=== PATIENT | male | born 1950 | race Caucasian/White ===

== ENCOUNTER 2016-12-12 11:57 | Emergency (ER) | payer OTHER ==
[~2016-12-12 11:57] MED LIST: ALPRAZOLAM PO; ALPRAZOLAM0.5 MG PO; ASPIRIN81 M2 PO; CALCIUM + D 6001 TA1 PO; CERTAGEN PO; DULCOLAX5 M1 PO; FUROSEMIDE40 MG PO; MULTI VITAMIN1 EACH PO; NEURONTIN800 MG PO; OXYCODONE HCL20 M1 PO; OXYCONTIN PO; RESTASIS32 EA OU; REYATAZ150 MG PO; STADOL; TEMAZEPAM PO; TRIUMEQ TABLET1 EACH PO; VIT B-12 PO; VITAMIN C1000 M2 PO; [UNRECOGNIZED DRUG - OTHER]
== END 2016-12-12 13:15 | disposition home or self-care (01) ==
LOC: CED 11:57 → CFTX 11:57
DX: S81.811A Laceration without foreign body, right lower leg, initial encounter (principal); Z88.8 Allergy status to other drugs, medicaments and biological substances; Z79.899 Other long term (current) drug therapy; Z23 Encounter for immunization; W22.8XXA Striking against or struck by other objects, initial encounter; Y92.009 Unspecified place in unspecified non-institutional (private) residence as the place of occurrence of the external cause
CPT/HCPCS: 90471; 90715; 99283

== ENCOUNTER 2017-01-08 08:24 | Emergency (ER) | payer OTHER ==
--- NOTE | ~2017-01-08 | CR142 ---
[facility] A Service of [facility] & [facility] RADIOLOGY TEXT RESULTS PATIENT: BOWEN DE LA VEGA LOCATION: [facility] : 54 UNIT #: [id number] AGE: [address]: Antoinette Calderon APRN SEX: M ORDER DR: [id number] [facility] [address] [place], [place] [address] [id number] E MR#: [id number] Acc #: [id number] NAME: BOWEN DE LA VEGA. : 1950 SEX: M STUDY DATE/TIME: 01/08/2017 10:06 UNIT: [facility] ROOM: STUDY DESCRIPTION: CR Hand Min 3 Views Rt Attending Physician: Antoinette Calderon A.P.R.N. Ordering Physician: Ed Doctor [id number] [facility] Primary Care Physician: Symone Hinkle M.D. MEDICAL IMAGING REPORT This report is preliminary unless electronic signature is present EXAM Right hand, 01/08 HISTORY Hand pain and swelling after a fall last night. FINDINGS Three views of the right hand were obtained. Wrist fractures are present as discussed in the wrist series from today. No acute fracture or malalignment is seen within the hand. IMPRESSION The hand is negative. Multiple wrist fractures are seen as discussed on the wrist series from today. Dictated by... David Jensen Jr., M.D. THIS IS AN ELECTRONICALLY VERIFIED REPORT David Jensen Jr., M.D. at 01/08/2017 3:38 PM EITAN/elsa TD: 01/08/2017 14:37 JOB #: [id number] MEDICAL IMAGING REPORT Page 1 of 1 COPY
--- NOTE | ~2017-01-08 | CR282 ---
[facility] A Service of [facility] & [facility] RADIOLOGY TEXT RESULTS PATIENT: BOWEN DE LA VEGA LOCATION: [facility] : 54 UNIT #: [id number] AGE: [address]: Antoinette Calderon APRN SEX: M ORDER DR: [id number] [facility] [address] [place], [place] [address] [id number] E MR#: [id number] Acc #: [id number] NAME: BOWEN DE LA VEGA. : 1950 SEX: M STUDY DATE/TIME: 01/08/2017 10:08 UNIT: [facility] ROOM: STUDY DESCRIPTION: CR Wrist Min 3 View Rt Attending Physician: Antoinette Calderon A.P.R.N. Ordering Physician: Ed Doctor [id number] [facility] Primary Care Physician: Symone Hinkle M.D. MEDICAL IMAGING REPORT This report is preliminary unless electronic signature is present EXAM Right wrist, 01/08 HISTORY Pain and swelling after a fall last night. FINDINGS Three views of the right wrist were obtained. There is a comminuted intraarticular fracture of the distal radius. The primary fracture fragment is displaced in the ulnar direction. No significant angulation. There is also a fracture at the base of the ulnar styloid which is essentially nondisplaced. The patient has a fracture through the distal scaphoid which appears acute on chronic. I have no older exams for comparison purposes. IMPRESSION Comminuted intraarticular distal radius fracture as above with a nondisplaced ulnar styloid fracture. There is also a distal scaphoid fracture which may be acute on chronic. Some of it appears fairly well corticated although there may be an acute fracture line present. Correlate with patient's history as I have no older radiographs. Dictated by... David Jensen Jr., M.D. THIS IS AN ELECTRONICALLY VERIFIED REPORT David Jensen Jr., M.D. at 01/08/2017 3:38 PM EITAN/elsa TD: 01/08/2017 14:34 JOB #: [id number] [facility] A Service of [facility] & [facility] RADIOLOGY TEXT RESULTS PATIENT: BOWEN DE LA VEGA [id number] 54 UNIT #: [id number] AGE: [address]: Antoinette Calderon APRN SEX: M ORDER DR: MEDICAL IMAGING REPORT Page 1 of 1 COPY
== END 2017-01-08 12:35 | disposition home or self-care (01) ==
LOC: CED 08:24
DX: S52.571A Other intraarticular fracture of lower end of right radius, initial encounter for closed fracture (principal); S52.614A Nondisplaced fracture of right ulna styloid process, initial encounter for closed fracture; S62.001A Unspecified fracture of navicular [scaphoid] bone of right wrist, initial encounter for closed fracture; Z88.6 Allergy status to analgesic agent; Z79.899 Other long term (current) drug therapy; Z79.82 Long term (current) use of aspirin; W18.39XA Other fall on same level, initial encounter; Y92.830 Public park as the place of occurrence of the external cause
CPT/HCPCS: 29125; 73110; 73130; 99283

== ENCOUNTER 2017-01-20 21:35 | Emergency (ER) | payer OTHER | END 2017-01-20 23:25 | disposition home or self-care (01) | LOC: CED 21:35 | DX: Z48.817 Encounter for surgical aftercare following surgery on the skin and subcutaneous tissue (principal); Z48.01 Encounter for change or removal of surgical wound dressing; F41.9 Anxiety disorder, unspecified; Z96.652 Presence of left artificial knee joint; Z88.5 Allergy status to narcotic agent; Z88.8 Allergy status to other drugs, medicaments and biological substances; Z79.899 Other long term (current) drug therapy; Z79.82 Long term (current) use of aspirin | CPT/HCPCS: 29280; 99282 ==